=== PATIENT | male | born 1985 | race Caucasian/White ===

== ENCOUNTER 2019-05-08 14:39 | Emergency (ER) | payer BC, MEDICAID ==
[~2019-05-08] VITALS: Ht 172.7 cm; Wt 95.3 kg
[2019-05-08 14:48] VITALS: BP 131/93
--- NOTE | 2019-05-08 14:48 | NUR ---
BIB SELF C/O FLU LIKE SYMPTOMS , COUGH AND CONGESTION STARTED YESTERDAY, NO FEVER TEMP OF 98F, TO ER BED 9, HOOKED TO MONITOR, PATIENT AOx4 , BREATHING EVEN AND UNLABORED. DR RASHEED AT BEDSIDE
--- NOTE | 2019-05-08 16:50 | NUR ---
Patient discharged to home in stable condition. Written and verbal after care instructions given. Patient verbalizes understanding of instruction.
== END 2019-05-08 16:51 | disposition home or self-care (01) ==
LOC: ER 14:39
DX: J06.9 Acute upper respiratory infection, unspecified (principal); F17.200 Nicotine dependence, unspecified, uncomplicated; Z60.2 Problems related to living alone
CPT/HCPCS: 71045-TC

== ENCOUNTER 2019-05-09 15:26 | Emergency (ER) | payer BC, MEDICAID, OTHER ==
[~2019-05-09] VITALS: Ht 172.7 cm; Wt 95.3 kg
[2019-05-09 15:38] VITALS: BP 149/100
--- NOTE | 2019-05-09 15:45 | NUR ---
KUSH EARL AT BEDSIDE FOR EVAL.
--- NOTE | 2019-05-09 15:57 | NUR ---
Patient discharged to home in stable condition. Written and verbal after care instructions given. Patient verbalizes understanding of instruction.
== END 2019-05-09 15:58 | disposition home or self-care (01) ==
LOC: ER 15:28
DX: J06.9 Acute upper respiratory infection, unspecified (principal); F17.200 Nicotine dependence, unspecified, uncomplicated; Z60.2 Problems related to living alone

== ENCOUNTER 2019-07-19 16:43 | Emergency (ER) | payer BC ==
[~2019-07-19] VITALS: Ht 172.7 cm; Wt 72.6 kg
[2019-07-19 16:45] VITALS: BP 130/81
--- NOTE | 2019-07-19 17:00 | NUR ---
SEEN AND EXAMINED BY .
--- NOTE | 2019-07-19 17:18 | NUR ---
Patient discharged to home in stable condition. Written and verbal after care instructions given. Patient verbalizes understanding of instruction.
== END 2019-07-19 17:20 | disposition home or self-care (01) ==
LOC: ER 16:51
DX: H65.91 Unspecified nonsuppurative otitis media, right ear (principal); F17.200 Nicotine dependence, unspecified, uncomplicated; Z60.2 Problems related to living alone

== ENCOUNTER 2020-10-05 21:57 | Emergency (ER) | payer BC ==
[~2020-10-05] VITALS: Ht 167.6 cm; Wt 90.7 kg
[2020-10-05 22:14] VITALS: BP 136/86
== END 2020-10-05 23:13 | disposition home or self-care (01) ==
LOC: ER 22:01
DX: Z71.1 Person with feared health complaint in whom no diagnosis is made (principal); I10 Essential (primary) hypertension; R51.9 Headache, unspecified; F17.200 Nicotine dependence, unspecified, uncomplicated